=== PATIENT | male | born 1950 | race Caucasian/White ===

== ENCOUNTER 2016-10-16 08:44 | Inpatient (IN) | payer BC, OTHER ==
[~2016-10-16] VITALS: Ht 172.7 cm; Wt 90.0 kg
[~2016-10-16 08:44] MED LIST: ALG PO; ALLO300T2 PO; AMLO-110 PO; AMLO2.5T PO; ASPI81TA28 PO; ATOR-24 PO; B-COTAB83 PO; COLCPOW6 PO; CRD200 PO; FERR1TAB13 PO; INSDGIPEN INJ; LISI20TA3 PO; LSX20 PO; LTRCR15 EXT; METO25TA56 PO; MGNO400 PO; ZRX5 PO; [UNRECOGNIZED DRUG - CODE]
[2016-10-16 12:00] VITALS: BP 172/77; PULSE 59; TEMP 36.4; O2SAT 98; BMI 30.6
[2016-10-16] MEDS ORDERED: B-COTAB97 PO (12:44)
[2016-10-16] MEDS ORDERED: MAGNTAB4 PO (12:47)
[2016-10-16 13:31] LABS: HEMATOCRIT 29.4 % (42-52); MEAN CELL VOLUME 96.1 fL (80-100); MEAN CORPUSCULAR HEMOGLOBIN 32.4 pg (25-34); MEAN CORPUSCULAR HGB CONC 33.7 g/dl (32-36); MEAN PLATELET VOLUME 11.2 fL (7.4-10.4); PLATELET COUNT 188 K/uL (130-400); RED BLOOD COUNT 3.06 M/uL (4.7-6.1); WHITE BLOOD COUNT 10.74 K/uL (4.8-10.8)
[2016-10-16] MEDS ORDERED: CLOP1TAB5 PO (13:57)
[2016-10-16] MEDS ORDERED: INSDGI SC (13:57)
[2016-10-16] MEDS ORDERED: BMX1 PO (13:57)
[2016-10-16] MEDS ORDERED: VTMD1000 PO (13:57)
--- NOTE | 2016-10-16 13:58 | DIAGNOSTIC IMAGING REPORT ---
RENAL ULTRASOUND HISTORY: Renal insufficiency worsening renal fx COMPARISON: None. FINDINGS: Right kidney: Maximum dimension 11.3 cm. No evidence for hydronephrosis. Slight increase in renal cortical echogenicity. 2. Small right renal cyst measuring 1.5 cm. Left kidney: Maximum dimension 13.0 cm. No evidence for hydronephrosis. Mild increase in cortical echogenicity. Trace amount of abdominal and pelvic ascites. Bladder is midline with no ultrasonic abnormality IMPRESSION: 1. Trace abdominal and pelvic ascites. 2. Mild increase in renal cortical echogenicity consistent with a component of nonobstructive renal insufficiency. 3.Small right renal cyst. 4. No evidence for hydronephrosis. Electronically signed by: Yovany Garcia M.D. 10/16/2016 1:56 PM Dictated Date/Time: 10/16/2016 1:54 PM
[2016-10-16] MEDS ORDERED: PNEUMOCOCCAL POLYSACCHARIDES 25 MCG/0.5 ML VIAL/SYR IM. ONE (14:00)
[2016-10-16] MEDS ORDERED: PNEUMOCOCCAL ADMINISTRATION CHARGE ONE (14:00)
[2016-10-16 14:28] LABS: BUN/CREATININE RATIO 10.4 (10-20); CALCIUM 8.1 mg/dl (8.5-10.1); CREATININE 6.8 mg/dl (0.60-1.40); POTASSIUM 5.3 mmol/L (3.5-5.1)
--- NOTE | 2016-10-16 14:29 | History and Physical ---
History & Physical Date & Time of Service: Oct 16, 2016 at 14:00 Chief Complaint: Renal Insufficiency Primary Care Physician: Richard Dsouza M.D. History of Present Illness Source: patient, clinic records, hospital records Patient is a 66 y/o male who is a direct admission at the request of Dr. Aggarwal for evaluation of worsening renal function. Patient follows closely with Dr. Aggarwal as an outpatient and was noted to have worsening renal function on his outpatient labs. Patient was instructed to hold Bumex 10 days ago, which he has been doing. He reports compliance with his other medications. However, due to worsening renal function, patient was instructed to come to the hospital for further evaluation. Patient is otherwise feeling well and is without any complaints. Past Medical/Surgical History Medical Problems: (1) Diabetes Status: Chronic (2) HTN (hypertension) Status: Chronic (3) Renal insufficiency Status: Chronic Surgical Problems: (1) History of open heart surgery Status: Resolved Family History Diabetes mellitus Hypertension Social History Smoking Status: Never Smoker Marital Status: Occupational Status: retired Allergies Coded Allergies: BEE STING (Unverified Allergy, Unknown, UNKNOWN, 09/19/15) Heparin (Unverified Allergy, Unknown, UNKNOWN, 09/19/15) FOUND WHEN HE WAS HAVING OPEN HEART SURGERY.INDICATED BY THE PATIENT Penicillins (Unverified Allergy, Unknown, UNKNOWN, 09/20/15) CEFEPIME IN ED 09/2015 Sulfa Antibiotics (Verified Allergy, Unknown, "SULFA DRUGS" ALLERGY, ) TAKES LASIX O/P Home Medications Scheduled Allopurinol (Zyloprim), 300 MG PO DAILY Amlodipine (Norvasc), 10 MG PO QAM Aspirin (Aspirin Ec), 81 MG PO HS Atorvastatin (Lipitor), 80 MG PO HS B-Complex W/ C & Folic Acid (Rody-Susana), 1 TAB PO DAILY Bumetanide (Bumetanide), 3 MG PO DAILY Cholecalciferol (Vitamin D3), 1 TAB PO DAILY Clopidogrel Bisulfate (Plavix), 1 TAB PO DAILY Epinephrine (Epipen 2-Sascha), UD Ferrous Sulfate (Kp Ferrous Sulfate), 1 TAB PO QPM Insulin Glargine (Lantus), 7 SC QPM Magnesium Chloride (Slow-Mag Tab), 2 TAB PO BID Metoprolol Tartrate (Lopressor) (Lopressor), 12.5 MG PO BID Review of Systems Constitutional- denies fevers, chills, headaches; +couple pound weight gain Eyes- denies vision changes ENT- denies sore throat or congestion Pulmonary- denies SOB; +residual cough (reports bronchitis in August) Cardiac- denies chest pain or palpitations GI- denies abdominal pain, nausea, vomiting, diarrhea, constipation - denies dysuria, hematuria; +decreased frequency since holding diuretic Musculoskeletal- denies joint pain or swelling Dermatologic- denies rash or bruising Neuro- denies weakness, numbness or tingling Psych- denies depression or anxiety . Physical Exam Vital Signs Date Time Temp Pulse Resp B/P Pulse Ox O2 Delivery O2 Flow Rate FiO2 10/16/16 12:00 36.4 59 18 172/77 98 Room Air General- awake; alert; NAD Eyes- EOMI; no scleral icterus Neck- no stridor; trachea midline Lungs- CTA bilaterally; no wheezes/crackles Heart- RRR; no m/r/g Abdomen- soft; NTND; nBS Back- no gross abnormalities Extremities- trace LE edema; no deformity Neuro- no focal deficits Skin- no appreciable rash, bruise, or skin breakdown . Diagnostics Laboratory Results Results Past 24 Hours Test 10/16/16 13:20 Range/Units White Blood Count 10.74 4.8-10.8 K/uL Red Blood Count 3.06 4.7-6.1 M/uL Hemoglobin 9.9 14.0-18.0 g/dL Hematocrit 29.4 42-52 % Mean Corpuscular Volume 96.1 80-100 fL Mean Corpuscular Hemoglobin 32.4 25-34 pg Mean Corpuscular Hemoglobin Concent 33.7 32-36 g/dl RDW Standard Deviation 59.4 36.4-46.3 fL RDW Coefficient of Variation 16.8 11.5-14.5 % Platelet Count 188 130-400 K/uL Mean Platelet Volume 11.2 7.4-10.4 fL EKG TTE Normal LV chamber size with mild concentric LVH. * Hyperdynamic LV systolic function, EF >70%. * No segmental left ventricular wall motion abnormalities are noted. * There is a bioprosthetic aortic valve. * The gradient is normal for this prosthetic aortic valve. * Doppler evidence of regurgitation is probably normal for this prosthetic aortic valve. * Mild to moderate tricuspid regurgitation. * Moderate left pleural effusion. Impression Assessment and Plan Patient is a 66 y/o male who is a direct admission for worsening renal function. Acute renal insufficiency - unclear etiology - Bumex has been held as an outpatient - Renal consult - renal ultrasound ordered - urinalysis pending - h/o CKD stage 4 Type 2 DM - continue Lantus 7units qpm - SSI CAD s/p CABG and AVR - TTE with pEF, no wall motion abnormalities, normal bioprosthetic valve gradients, moderate left pleural effusion - continue aspirin, clopidogrel, atorvastatin and metoprolol HTN - continue amlodipine and metoprolol Gout - not active - continue allopurinol DVT prophylaxis with SCD's Level of Care Telemetry Advanced Directives Existing Living Will: No Existing Power of Ad Terminal Makeup Operator: No Resuscitation Status FULL RESUSCITATION VTE Prophylaxis VTE Risk Assessment Done? Y/N: Yes Risk Level: Moderate Given or contraindicated: SCD's
[2016-10-16] MEDS ORDERED: GLUCOSE 10 TABS/TUBE PO PRN (14:30)
[2016-10-16] MEDS ORDERED: DEXTROSE 50% 50 ML SYR IV PRN (14:30)
[2016-10-16] MEDS ORDERED: GLUCOSE 40% GEL 15 GM TUBE PO PRN (14:30)
[2016-10-16] MEDS ORDERED: GLUCAGON FOR INJ 1 MG VIAL SQ PRN (14:30)
[2016-10-16 16:04] VITALS: BP 155/61; PULSE 61; TEMP 36.3; O2SAT 98
--- NOTE | 2016-10-16 16:20 | ECHOCARDIOGRAM REPORT ---
*NOTICE TO RECEIVING CONSTITUTION PARTY AGENCY This information is strictly Confidential and protected under [place] law. [place] law prohibits you from making any further disclosure of this information unless further disclosure is expressly permitted by the written consent of the person to whom it pertains or is authorized by law. A general authorization for the release of medical or other information is not sufficient for this purpose. Hospital accepts no responsibility if the information is made available to any other person, INCLUDING THE PATIENT. Interpretation Summary * Name: RENATO URIBE Study Date: 10/16/2016 02:48 PM BP: 172/77 mmHg * Patient Location: [facility]\S\[id number]\S\2 HR: 59 * : 1950 (M/d/yyyy) Gender: Male Height: 68 in * Age: 66 yrs Ethnicity: [place] Weight: 198 lb * Ordering Physician: Abby Womack * Performed By: Angela Bhatt RDCS * * Reason For Study: CHF * BSA: 2.0 m2 * -- Conclusions -- * Normal LV chamber size with mild concentric LVH. * Hyperdynamic LV systolic function, EF >70%. * No segmental left ventricular wall motion abnormalities are noted. * There is a bioprosthetic aortic valve. * The gradient is normal for this prosthetic aortic valve. * Doppler evidence of regurgitation is probably normal for this prosthetic aortic valve. * Mild to moderate tricuspid regurgitation. * Moderate left pleural effusion. Procedure Details * A complete two-dimensional transthoracic echocardiogram was performed (2D, M-mode, Doppler and color flow Doppler). Left Ventricle * The left ventricular cavity is small. * There is mild concentric left ventricular hypertrophy. * Ejection Fraction = >70 %. * The left ventricle is hyperdynamic. * No segmental left ventricular wall motion abnormalities are noted. * The left ventricular wall motion is normal. Right Ventricle * The right ventricular cavity size is normal (basal dimension <4.2 cm in right ventricular apical 4-chamber view). * The right ventricular systolic function is normal as assessed by tricuspid annular plane systolic excursion (TAPSE) (normal >1.5 cm). Atria * The left atrial size is normal. * Right atrial size is normal. * No ASD detected; PFO is not assessed. Mitral Valve * The mitral valve is normal in structure and function. Tricuspid Valve * The tricuspid valve anatomy is normal. * There is no tricuspid stenosis. * There is mild to moderate tricuspid regurgitation. Aortic Valve * There is a bioprosthetic aortic valve. * The gradient is normal for this prosthetic aortic valve. * Doppler evidence of regurgitation is probably normal for this prosthetic aortic valve. Pulmonic Valve * The pulmonary valve is not well seen, but the Doppler examination is normal without significant regurgitation or stenosis. Great Vessels * The aortic root is normal size. Pericardium/Pleural * There is no pericardial effusion. * Moderate size left pleural effusion. MMode 2D Measurements and Calculations IVSd 1.2 cm LVIDd 3.7 cm LVIDs 2.1 cm LVPWd 1.3 cm IVS/LVPW 0.88 FS 41.3 % EDV(Teich) 56.4 ml ESV(Teich) 15.2 ml EF(Teich) 73.0 % EDV(cubed) 48.8 ml ESV(cubed) 9.9 ml EF(cubed) 79.8 % LV mass(C)d 151.4 grams LV mass(C)dI 74.4 grams/m\S\2 CO(Teich) 2.3 l/min CI(Teich) 1.2 l/min/m\S\2 SV(Teich) 41.2 ml SI(Teich) 20.3 ml/m\S\2 CO(cubed) 2.2 l/min CI(cubed) 1.1 l/min/m\S\2 SV(cubed) 38.9 ml SI(cubed) 19.1 ml/m\S\2 LA dimension 3.6 cm LVAd ap4 26.1 cm\S\2 LVLd ap4 7.5 cm EDV(MOD-sp4) 73.0 ml LVAs ap4 11.5 cm\S\2 LVLs ap4 6.0 cm ESV(MOD-sp4) 18.0 ml EF(MOD-sp4) 75.3 % LVAd ap2 24.0 cm\S\2 LVLd ap2 7.4 cm EDV(MOD-sp2) 65.0 ml LVAs ap2 10.1 cm\S\2 LVLs ap2 5.9 cm ESV(MOD-sp2) 15.0 ml EF(MOD-sp2) 76.9 % CO(MOD-sp4) 3.1 l/min CI(MOD-sp4) 1.5 l/min/m\S\2 SV(MOD-sp4) 55.0 ml SI(MOD-sp4) 27.0 ml/m\S\2 CO(MOD-sp2) 2.9 l/min CI(MOD-sp2) 1.4 l/min/m\S\2 SV(MOD-sp2) 50.0 ml SI(MOD-sp2) 24.6 ml/m\S\2 Doppler Measurements and Calculations MV E max krysten 118.0 cm/sec MV dec time 0.21 sec Ao V2 max 213.4 cm/sec Ao max PG 18.2 mmHg Ao max PG (full) 12.6 mmHg Ao V2 mean 147.5 cm/sec Ao mean PG 9.8 mmHg Ao V2 VTI 45.5 cm LV V1 max PG 5.6 mmHg LV V1 max 118.5 cm/sec PA V2 max 98.6 cm/sec PA max PG 3.9 mmHg PA acc slope 260.3 cm/sec\S\2 PA acc time 0.17 sec PI max krysten 182.1 cm/sec PI max PG 13.3 mmHg PI dec slope 331.1 cm/sec\S\2 PI P1/2t 161.1 msec TR max krysten 229.2 cm/sec PA pr(Accel) 1.4 mmHg
[2016-10-16] MEDS: INSULIN ASPART 100 UNITS/ML 3 ML PEN SC SCH ×2 (17:28→20:43)
[2016-10-16 19:54] VITALS: BP 165/72; PULSE 67; TEMP 36.5; O2SAT 97
--- NOTE | 2016-10-16 20:22 | DIAGNOSTIC IMAGING REPORT ---
CHEST 2 VIEWS ROUTINE HISTORY: Evaluate pleural effusion. COMPARISON: Chest 09/29/2015. FINDINGS: No pneumothorax. Poststernotomy changes. The heart remains mildly enlarged. Small bilateral pleural effusions and bibasilar densities have slightly improved. The upper lung zones remain clear. No evidence for pulmonary edema. IMPRESSION: Improvement in the small bilateral pleural effusions and bibasilar densities. Electronically signed by: Bayron Dickinson M.D. 10/16/2016 8:21 PM Dictated Date/Time: 10/16/2016 8:20 PM
[2016-10-16] MEDS: METOPROLOL TARTRATE 25 MG TAB PO SCH (20:42)
[2016-10-16] MEDS: FERROUS SULFATE 325 MG TAB PO SCH (20:43)
[2016-10-16] MEDS: MAGNESIUM CHLORIDE 64MG DELAYED REL TAB PO SCH (20:43)
[2016-10-16] MEDS ORDERED: INSULIN GLARGINE SOLOSTAR 100 UNITS/ML 3 ML PEN SC SCH (21:00)
[2016-10-16] MEDS: ASPIRIN 81 MG ECTAB PO SCH (21:02)
[2016-10-16] MEDS: ATORVASTATIN 40 MG TAB PO SCH (21:23)
--- NOTE | 2016-10-16 21:25 | Nephrology Consultation ---
Nephrology Consultation Date of Consultation: Oct 16, 2016. Attending Physician: Dr Aleman Requesting Physician: Dr Womack Reason for Consultation: progressive CKD History of Present Illness 66 year old male w/ chronic diastolic HF, pleural effusions, advanced CKD 4/5, CABG w/ AVR 08/2015, HIT + , a fib, DM admitted directly at request of my partner Dr. Aggarwal d/t worsening renal function. His creatinine has been running in the 5s off of all diuretics (had been on bumex 1.5 mg daily since about august and previously 3 mg daily until 10/04 and despite this worsened to 6.6 most recently on 10/14; chemistries have otherwise been ok and pt not overtly uremic. since stopping diuretic, his wt which ran 189-190 x mos has increased to 195 lb as of this am and UOP has decreased from 1.7 > 950 mL daily. His CKD has progressed with his heart problems: prior to 08/2015 one month [facility] admission creatinine ran in high 1's; then he had CABG w/ AVR 08/2015 in [place] and post op course complicated by prolonged intubation, CRRT then intermittent HD; creatinine at hospital d/c was about 3. Then admitted to [facility] for 2 wks 09/2015 for mgt of cardiorenal syndrome and presenting creat 3.9; d/c creat 2.6 after aggressive diuresis. Seen by my partner last month in CKD clinic w/ HTN and recent change to bumex from lasix d/ t rash last year. Pt notes however that rash persisted after med change and that he tolerated both lasix/bumex for years w/o issue. However labs after sep 2016 ckd clinic visit visit show creatinine in 5s and as above, up from most recent 3's 06/2016. On review of chart, note that labs w/ non [facility] PCP showed creatinine in similar range Aug and Sep 2016. Past Medical/Surgical History Medical Problems: (1) Elevated troponin Status: Acute (2) Hypoxia Status: Acute (3) Pleural effusion Status: Acute (4) Pneumonia Status: Acute -DM > 20 yrs w/ retinopathy -CAD s/p CABG, AVR 08/2015 at [facility] -gout and as per HPI Family History Diabetes mellitus Hypertension Social History Smoking Status: Never Smoker Alcohol Use: none Drug Use: none Marital Status: Housing Status: lives alone Occupation Status: retired Allergies Coded Allergies: BEE STING (Unverified Allergy, Unknown, UNKNOWN, 09/19/15) Heparin (Unverified Allergy, Unknown, UNKNOWN, 09/19/15) FOUND WHEN HE WAS HAVING OPEN HEART SURGERY.INDICATED BY THE PATIENT Penicillins (Unverified Allergy, Unknown, UNKNOWN, 09/20/15) CEFEPIME IN ED 09/2015 Sulfa Antibiotics (Verified Allergy, Unknown, "SULFA DRUGS" ALLERGY, ) TAKES LASIX O/P Medications Current Inpatient Medications Medications (Trade) Dose Ordered Sig/Lizandro Route Start Time Stop Time Status Last Admin Dose Admin Allopurinol (Zyloprim Tab) 300 mg DAILY PO 10/17/16 09:00 11/16/16 08:59 Amlodipine Besylate (Norvasc Tab) 10 mg QAM PO 10/17/16 09:00 11/16/16 08:59 Aspirin (Ecotrin Tab) 81 mg HS PO 10/16/16 21:00 11/15/16 20:59 Atorvastatin Calcium (Lipitor Tab) 80 mg HS PO 10/16/16 21:00 11/15/16 20:59 Cholecalciferol (Vitamin D Tab) 1,000 inter.unit DAILY PO 10/17/16 09:00 11/16/16 08:59 Clopidogrel Bisulfate (plAVix TAB) 75 mg DAILY PO 10/17/16 09:00 11/16/16 08:59 Insulin Glargine (Lantus Solostar Pen) 7 unit QPM SC 10/16/16 21:00 11/15/16 20:59 Magnesium Chloride (Slow-Mag Tab) 128 mg BID PO 10/16/16 21:00 11/15/16 20:59 Metoprolol Tartrate (Lopressor Tab) 12.5 mg BID PO 10/16/16 21:00 11/15/16 20:59 Vitamin B Complex/ Vit C/Folic Acid (Nephrocaps) 1 cap QAM PO 10/17/16 09:00 11/16/16 08:59 Ferrous Sulfate (Feosol Tab) 325 mg PM PO 10/16/16 21:00 11/15/16 20:59 Insulin Aspart (novoLOG ASPART) SLIDING SCALE If C... ACHS SC 10/16/16 16:30 11/15/16 16:29 10/16/16 17:28 4 UNITS Glucose (Glucose 40% Gel) 15-30 GRAMS 15 GRAMS... UD PRN PO 10/16/16 14:30 11/15/16 14:29 Glucose (Glucose Chew Tab) 4-8 Tablets 4 Tabl... UD PRN PO 10/16/16 14:30 11/15/16 14:29 Dextrose (Dextrose 50% 50ML Syringe) 25-50ML OF 50% DW IV FOR... UD PRN IV 10/16/16 14:30 11/15/16 14:29 Glucagon (Glucagon Inj) 1 mg UD PRN SQ 10/16/16 14:30 11/15/16 14:29 Home Meds and Scripts Medications Dose Route/Sig Max Daily Dose Days Date Category Lantus (Insulin Glargine) 100 Unit/Ml Inj 7 SC QPM 10/16/16 Reported Vitamin D3 (Cholecalciferol) 1,000 Inter.unit Tab 1 Tab PO DAILY 10/16/16 Reported Plavix (Clopidogrel Bisulfate) 75 Mg Tab 1 Tab PO DAILY 10/16/16 Reported Bumetanide 1 Mg Tab 3 Mg PO DAILY 10/16/16 Reported Slow-Mag Tab (Magnesium Chloride) 64 Mg Tabcr 2 Tab PO BID 10/16/16 Reported Rody-Susana (B-Complex W/ C & Folic Acid) 1 Tab Tab 1 Tab PO DAILY 10/16/16 Reported Kp Ferrous Sulfate (Ferrous Sulfate) 325 Mg Tab 1 Tab PO QPM 05/28/16 Reported Lopressor (Metoprolol Tartrate) 25 Mg Tab 12.5 Mg PO BID 09/19/15 Reported Norvasc (Amlodipine Besylate) 5 Mg Tab 10 Mg PO QAM 09/19/15 Reported Lipitor (Atorvastatin Calcium) 40 Mg Tab 80 Mg PO HS 09/19/15 Reported Aspirin Ec (Aspirin) 81 Mg Tab 81 Mg PO HS 11/17/14 Reported Epipen 2-Sascha (Epinephrine) 0.3 Mg Inj UD 11/17/14 Reported Zyloprim (Allopurinol) 300 Mg Tab 300 Mg PO DAILY 11/17/14 Reported Review of Systems Constitutional: + fatigue, + problem reported (wt gain), No fever, No weakness Eyes: No worsening of vision ENT: No hearing loss Respiratory: No cough, No shortness of breath Cardiac: + edema, No PND, No chest pain, No orthopnea, No palpitations Abdomen: + problem reported (distension/abd wall edema; denies loss of appetite or metallic taste to foods), No diarrhea, No nausea, No pain, No vomiting Musculoskeletal: No joint pain, No muscle pain Male : No dysuria, No nocturia more than once/night, No urinary frequency Neuro: No memory loss, No weakness Psych: No anxiety, No depression symptoms Heme: No abnormal bleeding/bruising Endo: No fatigue Skin: No itch, No new/changing skin lesions, No rash Physical Exam Date Time Temp Pulse Resp B/P Pulse Ox O2 Delivery O2 Flow Rate FiO2 10/16/16 16:04 36.3 61 18 155/61 98 Room Air 10/16/16 12:00 36.4 59 18 172/77 98 Room Air General Appearance: WD/WN, no apparent distress, + pertinent finding (up in chair on RA w/ protuberant abdomen) Eyes: EOMI ENT: hearing grossly normal Neck: supple Respiratory/Chest: lungs clear, + decreased breath sounds (BL bases) Cardiovascular: + irregularly irregular, + pertinent finding (2+ pitting edema to umbilicus) Abdomen: normal bowel sounds, non tender, soft, + pertinent finding (ant abd wall edema) Extremities: + swelling Neurologic/Psych: no motor/sensory deficits, alert, normal mood/affect, oriented x 3 Skin: no jaundice, warm/dry, no rash Diagnostics Last 24 Hours Test 10/16/16 13:20 10/16/16 16:07 White Blood Count 10.74 K/uL Red Blood Count 3.06 M/uL Hemoglobin 9.9 g/dL Hematocrit 29.4 % Mean Corpuscular Volume 96.1 fL Mean Corpuscular Hemoglobin 32.4 pg Mean Corpuscular Hemoglobin Concent 33.7 g/dl RDW Standard Deviation 59.4 fL RDW Coefficient of Variation 16.8 % Platelet Count 188 K/uL Mean Platelet Volume 11.2 fL Sodium Level 141 mmol/L Potassium Level 5.3 mmol/L Chloride Level 112 mmol/L Carbon Dioxide Level 18 mmol/L Anion Gap 11.0 mmol/L Blood Urea Nitrogen 71 mg/dl Creatinine 6.80 mg/dl Est Creatinine Clear Calc Drug Dose 11.4 ml/min Estimated GFR () 8.9 Estimated GFR (Non- 7.6 BUN/Creatinine Ratio 10.4 Random Glucose 81 mg/dl Calcium Level 8.1 mg/dl Magnesium Level 2.0 mg/dl Hepatitis C Antibody Screen NEG Bedside Glucose 93 mg/dl Diagnostic Radiology: Renal u/s today > no stone or hydronephrosis; small R renal cyst TTE today * Normal LV chamber size with mild concentric LVH. * Hyperdynamic LV systolic function, EF >70%. * No segmental left ventricular wall motion abnormalities are noted. * There is a bioprosthetic aortic valve. * The gradient is normal for this prosthetic aortic valve. * Doppler evidence of regurgitation is probably normal for this prosthetic aortic valve. * Mild to moderate tricuspid regurgitation. * Moderate left pleural effusion. Assessment & Plan 66 y/o M w/ progressive ckd now w/ creatinine in 6's and mild hyperkalemia in the setting of chronic DHF, a fib, DM. Fortunately no uremic sx. Diuretics on hold prior to admission and really on low dose diuretic prior to this; renal u/ s reassuring. Clearly volume overloaded and hypertensive on exam. See HPI re lasix/bumex rash/intolerance > in short pt not concerned. some anemia but this may well be dilutional. HIT noted. -lasix IV 60 mg now x 1 -then lasix 60 mg iv at 0700, 1300, 1900 tomorrow -renal diet -CXR 2 view shows small BL pl effusions and no plm edema -daily standing wt -<2 gm daily na diet -daily bmp -uacm pending, prot/creat ordered - TSH in am >> his HR is quite slow for low BB dose -no acute indication for dialysis but cannot rule out need this admission -f/u pending ua and check prot/creat ratio Appreciate consult; will follow with you.
[2016-10-16] MEDS ORDERED: FUROSEMIDE INJ 60 MG in SYRINGE 0 ML IV ONE (21:30)
[2016-10-16 21:54] LABS: THYROID STIMULATING HORMONE 4.16 uIu/ml (0.300-4.500)
[2016-10-16 22:35] LABS: URINE APPEARANCE CLEAR (CLEAR); URINE BILIRUBIN NEG (NEG); URINE COLOR YELLOW; URINE EPITHELIAL CELL AUTO >30 /lpf (0-5); URINE NITRITE NEG (NEG); URINE PH 5.5 (4.5-7.5); UROBILINOGEN NEG (NEG)
[2016-10-16 22:46] LABS: MANUAL MICROSCOPIC REQUIRED? NO; REVIEW REQ? YES
[2016-10-16 22:57] LABS: URINE PATH CASTS 5-10 GRANULAR CASTS /lpf (0)
[2016-10-16 23:22] LABS: URINE PROTIEN/CREAT RATIO 13.8 (0-0.2); URINE TOTAL PROTEIN 718.9 mg/dl (0-11.9)
[2016-10-17] VITALS (8 sets, daily range): BP systolic 111–171; BP diastolic 53–80; PULSE 56–77; TEMP 36.5–36.9; O2SAT 92–98; Ht 172.7 cm; Wt 90.0 kg
[2016-10-17] MEDS: INSULIN ASPART 100 UNITS/ML 3 ML PEN SC SCH ×5 (06:30→20:24)
[2016-10-17 06:58] LABS: HEMATOCRIT 26.5 % (42-52); MEAN CORPUSCULAR HGB CONC 34.3 g/dl (32-36); MEAN PLATELET VOLUME 11.6 fL (7.4-10.4); PLATELET COUNT 168 K/uL (130-400); RED BLOOD COUNT 2.76 M/uL (4.7-6.1); WHITE BLOOD COUNT 9.01 K/uL (4.8-10.8)
[2016-10-17] MEDS: FUROSEMIDE INJ 60 MG in SYRINGE 0 ML IV SCH ×3 (07:38→18:46)
[2016-10-17] MEDS: METOPROLOL TARTRATE 25 MG TAB PO SCH ×2 (07:39→20:20)
[2016-10-17] MEDS: MAGNESIUM CHLORIDE 64MG DELAYED REL TAB PO SCH ×2 (07:40→20:20)
[2016-10-17 07:41] LABS: BUN/CREATININE RATIO 10.3 (10-20); CALCIUM 7.9 mg/dl (8.5-10.1); CREATININE 6.9 mg/dl (0.60-1.40); MAGNESIUM 1.8 mg/dl (1.8-2.4); POTASSIUM 4.7 mmol/L (3.5-5.1)
[2016-10-17] MEDS ORDERED: CHOLECALCIFEROL 1000 INTER.UNIT TAB PO SCH (09:00)
[2016-10-17] MEDS ORDERED: NEPHROCAPS PO SCH (09:00)
[2016-10-17] MEDS ORDERED: ALLOPURINOL 300 MG TAB PO SCH (09:00)
[2016-10-17] MEDS ORDERED: AMLODIPINE BESYLATE 5 MG TAB PO SCH (09:00)
[2016-10-17] MEDS ORDERED: CLOPIDOGREL BISULFATE 75 MG TAB PO SCH (09:00)
[2016-10-17] MEDS ORDERED: PHARMACY GLYCEMIC MGMT CONSULT SCH (11:30)
--- NOTE | 2016-10-17 12:59 | Nephrology Progress Note ---
Nephrology Progress Note Date of Service: Oct 17, 2016. Subjective no interval events; notes edema better b/c knees looser; still no fatigue, N, dyspnea. reluctant to meet vascular but accepts need for tomorrow Objective Date Time Temp Pulse Resp B/P Pulse Ox O2 Delivery O2 Flow Rate FiO2 10/17/16 11:28 36.8 56 18 135/80 96 10/17/16 08:00 Room Air 10/17/16 07:43 36.8 63 18 167/74 98 Room Air 10/17/16 03:53 98 Room Air 10/17/16 03:52 36.8 58 20 148/53 96 10/17/16 00:19 36.9 66 18 144/76 98 Room Air 10/17/16 00:00 98 Room Air 10/16/16 20:00 Room Air 10/16/16 19:54 36.5 67 20 165/72 97 Room Air 10/16/16 16:04 36.3 61 18 155/61 98 Room Air 10/16/16 16:00 Room Air Physical Exam: General Appearance: WD/WN, no apparent distress, + pertinent finding (up in chair on RA w/ protuberant abdomen) Eyes: EOMI ENT: hearing grossly normal Neck: supple Respiratory/Chest: lungs clear, + decreased breath sounds (BL bases) Cardiovascular: + irregularly irregular, + pertinent finding (still w/ 2+ pitting edema to umbilicus) Abdomen: normal bowel sounds, non tender, soft, + pertinent finding (ant abd wall edema) Extremities: + swelling Neurologic/Psych: no motor/sensory deficits, alert, normal mood/affect, oriented x 3 Skin: no jaundice, warm/dry, no rash Current Inpatient Medications Medications (Trade) Dose Ordered Sig/Lizandro Route Start Time Stop Time Status Last Admin Dose Admin Allopurinol (Zyloprim Tab) 300 mg DAILY PO 10/17/16 09:00 11/16/16 08:59 10/17/16 07:40 300 MG Amlodipine Besylate (Norvasc Tab) 10 mg QAM PO 10/17/16 09:00 11/16/16 08:59 10/17/16 07:39 10 MG Aspirin (Ecotrin Tab) 81 mg HS PO 10/16/16 21:00 11/15/16 20:59 10/16/16 21:02 81 MG Atorvastatin Calcium (Lipitor Tab) 80 mg HS PO 10/16/16 21:00 11/15/16 20:59 10/16/16 21:23 80 MG Cholecalciferol (Vitamin D Tab) 1,000 inter.unit DAILY PO 10/17/16 09:00 11/16/16 08:59 10/17/16 07:40 1,000 INTER.UNIT Clopidogrel Bisulfate (plAVix TAB) 75 mg DAILY PO 10/17/16 09:00 11/16/16 08:59 10/17/16 07:40 75 MG Magnesium Chloride (Slow-Mag Tab) 128 mg BID PO 10/16/16 21:00 11/15/16 20:59 10/17/16 07:40 128 MG Metoprolol Tartrate (Lopressor Tab) 12.5 mg BID PO 10/16/16 21:00 11/15/16 20:59 10/17/16 07:39 12.5 MG Vitamin B Complex/ Vit C/Folic Acid (Nephrocaps) 1 cap QAM PO 10/17/16 09:00 11/16/16 08:59 10/17/16 07:39 1 CAP Ferrous Sulfate (Feosol Tab) 325 mg PM PO 10/16/16 21:00 11/15/16 20:59 10/16/16 20:43 325 MG Insulin Aspart (novoLOG ASPART) SLIDING SCALE If C... ACHS SC 10/16/16 16:30 10/16/16 17:28 4 UNITS Glucose (Glucose 40% Gel) 15-30 GRAMS 15 GRAMS... UD PRN PO 10/16/16 14:30 11/15/16 14:29 Glucose (Glucose Chew Tab) 4-8 Tablets 4 Tabl... UD PRN PO 10/16/16 14:30 11/15/16 14:29 Dextrose (Dextrose 50% 50ML Syringe) 25-50ML OF 50% DW IV FOR... UD PRN IV 10/16/16 14:30 11/15/16 14:29 Glucagon 1 mg 1 mg UD PRN SQ 10/16/16 14:30 11/15/16 14:29 Furosemide/Syringe (Lasix Inj/ Syringe) 6 ml @ 3 mls/min DAILY@0700,1300,1900 IV 10/17/16 07:00 11/16/16 06:59 10/17/16 12:25 3 MLS/MIN Miscellaneous Information (Consult Glycemic Management Pharmacy) 1 ea UD N/A 10/17/16 11:30 11/16/16 11:29 Last 24 Hours Test 10/16/16 13:20 10/16/16 16:07 10/16/16 20:05 10/16/16 22:21 White Blood Count 10.74 K/uL Red Blood Count 3.06 M/uL Hemoglobin 9.9 g/dL Hematocrit 29.4 % Mean Corpuscular Volume 96.1 fL Mean Corpuscular Hemoglobin 32.4 pg Mean Corpuscular Hemoglobin Concent 33.7 g/dl RDW Standard Deviation 59.4 fL RDW Coefficient of Variation 16.8 % Platelet Count 188 K/uL Mean Platelet Volume 11.2 fL Sodium Level 141 mmol/L Potassium Level 5.3 mmol/L Chloride Level 112 mmol/L Carbon Dioxide Level 18 mmol/L Anion Gap 11.0 mmol/L Blood Urea Nitrogen 71 mg/dl Creatinine 6.80 mg/dl Est Creatinine Clear Calc Drug Dose 11.4 ml/min Estimated GFR () 8.9 Estimated GFR (Non- 7.6 BUN/Creatinine Ratio 10.4 Random Glucose 81 mg/dl Calcium Level 8.1 mg/dl Magnesium Level 2.0 mg/dl Thyroid Stimulating Hormone (TSH) 4.160 uIu/ml Hepatitis C Antibody Screen NEG Bedside Glucose 93 mg/dl 124 mg/dl Urine Color YELLOW Urine Appearance CLEAR Urine pH 5.5 Urine Specific [place] 1.010 Urine Protein 3+ Urine Glucose (UA) 1+ Urine Ketones NEG Urine Occult Blood 2+ Urine Nitrite NEG Urine Bilirubin NEG Urine Urobilinogen NEG Urine Leukocyte Esterase NEG Urine WBC (Auto) 5-10 /hpf Urine RBC (Auto) 10-30 /hpf Urine Hyaline Casts (Auto) 10-30 /lpf Urine Epithelial Cells (Auto) >30 /lpf Urine Bacteria (Auto) NEG Urine Renal Epithelial Cells 0-5 /lpf Urine Pathogenic Casts 5-10 GRANULAR CASTS /lpf Urine Random Creatinine 52.0 mg/dl Urine Random Total Protein 718.9 mg/dl Urine Protein/Creatinine Ratio 13.8 Test 10/17/16 06:00 10/17/16 07:30 White Blood Count 9.01 K/uL Red Blood Count 2.76 M/uL Hemoglobin 9.1 g/dL Hematocrit 26.5 % Mean Corpuscular Volume 96.0 fL Mean Corpuscular Hemoglobin 33.0 pg Mean Corpuscular Hemoglobin Concent 34.3 g/dl RDW Standard Deviation 57.9 fL RDW Coefficient of Variation 16.5 % Platelet Count 168 K/uL Mean Platelet Volume 11.6 fL Sodium Level 140 mmol/L Potassium Level 4.7 mmol/L Chloride Level 111 mmol/L Carbon Dioxide Level 16 mmol/L Anion Gap 13.0 mmol/L Blood Urea Nitrogen 71 mg/dl Creatinine 6.90 mg/dl Est Creatinine Clear Calc Drug Dose 11.2 ml/min Estimated GFR () 8.7 Estimated GFR (Non- 7.5 BUN/Creatinine Ratio 10.3 Random Glucose 57 mg/dl Calcium Level 7.9 mg/dl Magnesium Level 1.8 mg/dl Bedside Glucose 61 mg/dl Assessment & Plan 66 y/o M w/ progressive ckd admitted 10/16 w/ creatinine in 6's and mild hyperkalemia in the setting of chronic DHF, a fib, DM. Fortunately no uremic sx. Diuretics on hold prior to admission and really on low dose diuretic prior to this; renal u/s reassuring. Clearly volume overloaded and hypertensive on exam. See HPI re lasix/bumex rash/intolerance > in short pt not concerned. some anemia but this may well be dilutional. HIT noted. he has 14 gm proteinuria on spot ratio; hx of previous nephrotic range proteinuria as outpt; urine also w/ blood, granular casts; no UTI; 20+ yr hx of DM, HTN -cont lasix 60 mg iv at 0700, 1300, 1900 tomorrow -renal diet -daily standing wt order reinforced -<2 gm daily na diet -daily bmp - TSH wnl -no acute indication for dialysis but cannot rule out need this admission > I plan to consult vascular in AM for possible TDC on 10/21 -spent over 20 min discussing ESRD planning/education w/ pt and got daughter's phone #; will attempt to contact her this evening Appreciate consult; will follow with you.
--- NOTE | 2016-10-17 13:21 | Pharmacy Progress Note ---
Glycemic Control Intl Consult Date of Service Oct 17, 2016. Scope Glycemic Pharmacist consulted by Dr Aleman on 10/17/16 for glycemic control and to write orders per [facility] inpatient glycemic control protocol Objective Weight (Kilograms): 90.000 Accuchecks BSG (last 24hrs): Test 10/16/16 13:20 10/16/16 16:07 10/16/16 20:05 10/17/16 06:00 Random Glucose 81 mg/dl (70-99) 57 mg/dl (70-99) Bedside Glucose 93 mg/dl (70-99) 124 mg/dl (70-99) Test 10/17/16 07:30 Bedside Glucose 61 mg/dl (70-99) Laboratory Data (last 24hrs) Test 10/16/16 13:20 10/17/16 06:00 Anion Gap 11.0 mmol/L 13.0 mmol/L BUN/Creatinine Ratio 10.4 10.3 Blood Urea Nitrogen 71 mg/dl 71 mg/dl Creatinine 6.80 mg/dl 6.90 mg/dl Potassium Level 5.3 mmol/L 4.7 mmol/L Sodium Level 141 mmol/L 140 mmol/L White Blood Count 10.74 K/uL 9.01 K/uL Recent Pertinent Medications Outpatient Anti-diabetic Regimen: * Lantus 7 units qpm * A1c = probably not accurate due to renal impairment/anemia The patient is currently receiving: * Basal insulin: Lantus on hold * Correctional Insulin: Novolog Correction per scale ACHS Goal Range: Low 140 mg/dL - High 180 mg/dL Correction Factor: 50 mg/dL/unit * Prandial insulin: Per carb ratio of 1 unit per 30 grams CHO consumed * Oral Agents: none Risk Factors for Insulin Resistance: * Steroids: no * Infection: no * Pressors: no * IVF: no * Recent Surgery: no * Diet: type 2 diabetic AHA renal low sodium * Mechanical Ventilation: no Assessment & Plan ASSESSMENT: * ADA & AACE recommend a goal blood sugar range 140-180 mg/dl for the majority of critically ill & non-critically ill patients. However, more stringent targets may be selected in individual cases. * 66 yo type 2 diabetic now admitted for worsening renal function. Blood sugars have been running low, possibly due to accumulation of Lantus with increasing renal impairment. Will hold Lantus until BSG is above 180, continue conservative correction, and hold carb coverage for now. Will reassess in am. PLAN FOR INPATIENT GLYCEMIC CONTROL: * Basal insulin with LANTUS per protocol qhs if BSG is less than 180, hold dose if BSG is 181 or more, give 7 units * Correctional Insulin with NOVOLOG per scale ACHS or Q6hrs while NPO * Goal Range: Low 140 mg/dL - High 180 mg/dL * Correction Factor: 50 mg/dL/unit * No Nutritional / Prandial insulin at this time * Please note that the plan above was derived based on current level of insulin resistance and hospital stress. These recommendations are appropriate for inpatient admission only. Plan of care upon discharge will need to be reassessed to avoid potential outpatient hypo/hyperglycemia. Thank you.
--- NOTE | 2016-10-17 17:24 | Progress Note ---
Medicine Progress Note Date & Time of Visit: Oct 17, 2016 at 16:58. Subjective seen resting in bedside chair comfortable denies chest pain, dyspnea, dizziness, nausea, abdominal pain, weakness no other symptoms Objective Last 8 Hrs Date Time Temp Pulse Resp B/P Pulse Ox O2 Delivery O2 Flow Rate FiO2 10/17/16 16:13 36.5 57 18 171/79 96 Room Air 10/17/16 16:00 Room Air 10/17/16 12:00 Room Air 10/17/16 11:28 36.8 56 18 135/80 96 Physical Exam: General- oriented x 3, not in distress, speaks in sentences with no effort Eyes-EOMI, anicteric Neck- supple, no JVD Lungs- clear to auscultation bilaterally, no rales/wheeze Heart- normal rate, regular rhythm; no murmurs Abdomen- normal bowel sounds, soft, nontender Extremities- no pretibial edema, no calf tenderness; peripheral pulses intact Neuro- alert, oriented x 3; no gross deficits Skin- warm & dry Laboratory Results: Last 24 Hours Test 10/16/16 20:05 10/16/16 22:21 10/17/16 06:00 10/17/16 07:30 Bedside Glucose 124 mg/dl 61 mg/dl Urine Color YELLOW Urine Appearance CLEAR Urine pH 5.5 Urine Specific [place] 1.010 Urine Protein 3+ Urine Glucose (UA) 1+ Urine Ketones NEG Urine Occult Blood 2+ Urine Nitrite NEG Urine Bilirubin NEG Urine Urobilinogen NEG Urine Leukocyte Esterase NEG Urine WBC (Auto) 5-10 /hpf Urine RBC (Auto) 10-30 /hpf Urine Hyaline Casts (Auto) 10-30 /lpf Urine Epithelial Cells (Auto) >30 /lpf Urine Bacteria (Auto) NEG Urine Renal Epithelial Cells 0-5 /lpf Urine Pathogenic Casts 5-10 GRANULAR CASTS /lpf Urine Random Creatinine 52.0 mg/dl Urine Random Total Protein 718.9 mg/dl Urine Protein/Creatinine Ratio 13.8 White Blood Count 9.01 K/uL Red Blood Count 2.76 M/uL Hemoglobin 9.1 g/dL Hematocrit 26.5 % Mean Corpuscular Volume 96.0 fL Mean Corpuscular Hemoglobin 33.0 pg Mean Corpuscular Hemoglobin Concent 34.3 g/dl RDW Standard Deviation 57.9 fL RDW Coefficient of Variation 16.5 % Platelet Count 168 K/uL Mean Platelet Volume 11.6 fL Sodium Level 140 mmol/L Potassium Level 4.7 mmol/L Chloride Level 111 mmol/L Carbon Dioxide Level 16 mmol/L Anion Gap 13.0 mmol/L Blood Urea Nitrogen 71 mg/dl Creatinine 6.90 mg/dl Est Creatinine Clear Calc Drug Dose 11.2 ml/min Estimated GFR () 8.7 Estimated GFR (Non- 7.5 BUN/Creatinine Ratio 10.3 Random Glucose 57 mg/dl Calcium Level 7.9 mg/dl Magnesium Level 1.8 mg/dl Test 10/17/16 07:56 10/17/16 11:40 10/17/16 16:44 Bedside Glucose 71 mg/dl 105 mg/dl 119 mg/dl Assessment & Plan Patient is a 66 y/o male who is a direct admission for worsening renal function. ACUTE RENAL FAILURE ON CKD 4 - baseline crea ~2.6, presented with crea 6.8 - unclear etiology - Bumex has been held as an outpatient with persistent elevation of crea - Renal consulted - renal ultrasound: 1. Trace abdominal and pelvic ascites. 2. Mild increase in renal cortical echogenicity consistent with a component of nonobstructive renal insufficiency. 3.Small right renal cyst. 4. No evidence for hydronephrosis. - urinalysis: 3+ protein, rbc 10-30, 5-10 granular case - given Lasix 40mg IV TID urine output 1.1 liter so far crea still at 6.9 - discussed case with Nephrology will likely need renal biopsy to r/o Nephrotic Syndrome, recommend transfer to [facility] Armando spoke with [facility] hospitalist who kindly accepted the patient Type 2 DM - hypoglycemic at ~60s this AM - hold usual PM Lantus - insulin sliding scale for now CAD s/p CABG and AVR- Bioprosthetic - Echo: -- Conclusions -- * Normal LV chamber size with mild concentric LVH. * Hyperdynamic LV systolic function, EF >70%. * No segmental left ventricular wall motion abnormalities are noted. * There is a bioprosthetic aortic valve. * The gradient is normal for this prosthetic aortic valve. * Doppler evidence of regurgitation is probably normal for this prosthetic aortic valve. * Mild to moderate tricuspid regurgitation. * Moderate left pleural effusion. - continue aspirin, clopidogrel, atorvastatin and metoprolol HTN - mildly elevated asymptomatic monitor - continue amlodipine and metoprolol GOUT - not active - continue allopurinol DVT prophylaxis with SCD's Disposition d/c to [facility] today Current Inpatient Medications: Current Inpatient Medications Medications (Trade) Dose Ordered Sig/Lizandro Route Start Time Stop Time Status Last Admin Dose Admin Allopurinol (Zyloprim Tab) 300 mg DAILY PO 10/17/16 09:00 11/16/16 08:59 10/17/16 07:40 300 MG Amlodipine Besylate (Norvasc Tab) 10 mg QAM PO 10/17/16 09:00 11/16/16 08:59 10/17/16 07:39 10 MG Aspirin (Ecotrin Tab) 81 mg HS PO 10/16/16 21:00 11/15/16 20:59 10/16/16 21:02 81 MG Atorvastatin Calcium (Lipitor Tab) 80 mg HS PO 10/16/16 21:00 11/15/16 20:59 10/16/16 21:23 80 MG Cholecalciferol (Vitamin D Tab) 1,000 inter.unit DAILY PO 10/17/16 09:00 11/16/16 08:59 10/17/16 07:40 1,000 INTER.UNIT Clopidogrel Bisulfate (plAVix TAB) 75 mg DAILY PO 10/17/16 09:00 11/16/16 08:59 10/17/16 07:40 75 MG Magnesium Chloride (Slow-Mag Tab) 128 mg BID PO 10/16/16 21:00 11/15/16 20:59 10/17/16 07:40 128 MG Metoprolol Tartrate (Lopressor Tab) 12.5 mg BID PO 10/16/16 21:00 11/15/16 20:59 10/17/16 07:39 12.5 MG Vitamin B Complex/ Vit C/Folic Acid (Nephrocaps) 1 cap QAM PO 10/17/16 09:00 11/16/16 08:59 10/17/16 07:39 1 CAP Ferrous Sulfate (Feosol Tab) 325 mg PM PO 10/16/16 21:00 11/15/16 20:59 10/16/16 20:43 325 MG Insulin Aspart (novoLOG ASPART) SLIDING SCALE If C... ACHS SC 10/16/16 16:30 10/16/16 17:28 4 UNITS Glucose (Glucose 40% Gel) 15-30 GRAMS 15 GRAMS... UD PRN PO 10/16/16 14:30 11/15/16 14:29 Glucose (Glucose Chew Tab) 4-8 Tablets 4 Tabl... UD PRN PO 10/16/16 14:30 11/15/16 14:29 Dextrose (Dextrose 50% 50ML Syringe) 25-50ML OF 50% DW IV FOR... UD PRN IV 10/16/16 14:30 11/15/16 14:29 Glucagon 1 mg 1 mg UD PRN SQ 10/16/16 14:30 11/15/16 14:29 Furosemide/Syringe (Lasix Inj/ Syringe) 6 ml @ 3 mls/min DAILY@0700,1300,1900 IV 10/17/16 07:00 11/16/16 06:59 10/17/16 12:25 3 MLS/MIN Miscellaneous Information (Consult Glycemic Management Pharmacy) 1 ea UD N/A 10/17/16 11:30 11/16/16 11:29 Insulin Glargine (Lantus Solostar Pen) see protocol QPM SC 10/17/16 21:00 11/16/16 20:59
--- NOTE | 2016-10-17 17:29 | Discharge Instructions ---
Discharge Instructions Date of Service Oct 17, 2016. Admission Reason for Admission: Renal Insufficiency Discharge Discharge Diagnosis / Problem: ACUTE RENAL FAILURE ON CHRONIC KIDNEY DISEASE Discharge Goals Goal(s): Diagnostic testing, Therapeutic intervention Activity Recommendations Activity Level: Ambulates in room . Additional Information Patient informed of condition: Yes Advance Directives: No (UNKNOWN) DNR: No (PATIENT IS FULL CODE) Level of Care: Other ([facility]) Communicable Disease: No Prognosis: Other (GUARDED) Instructions / Follow-Up Instructions / Follow-Up PLEASE REFER TO ACCOMPANYING DISCHARGE SUMMARY. ALSO REFER TO SEPARATE MEDICAL RECONCILIATION SHEET FOR UPDATED MEDICATION LIST. Current Hospital Diet Patient's current hospital diet: Renal Diet, AHA Diet (Heart Healthy), Diabetes Type 2 Diet, Low Sodium Diet (2gm Na) Discharge Diet Recommended Diet: AHA Diet (Heart Healthy), Renal Diet Fluid Restriction: 1500 ml (6 cups) Procedures Procedures Performed: PLEASE REFER TO ACCOMPANYING DISCHARGE SUMMARY. Pending Studies Studies pending at discharge: yes List of pending studies: PLEASE REFER TO ACCOMPANYING DISCHARGE SUMMARY. Physician Orders On Transfer Special Precautions: PLEASE REFER TO ACCOMPANYING DISCHARGE SUMMARY. Medical Emergencies . Who to Call and When: Medical Emergencies: If at any time you feel your situation is an emergency, please call 911 immediately. . Non-Emergent Contact Non-Emergency issues call your: Primary Care Provider . Past History Medical & Surgical History: (1) Diabetes (2) HTN (hypertension) (3) Renal insufficiency . "Provider Documentation" section prepared by Fabricio Aleman. Core Measure Problem Core Measures: None
--- NOTE | 2016-10-17 17:37 | Discharge Summary ---
Discharge Summary Date of Service Oct 17, 2016. Discharge Summary Admission Date: Oct 16, 2016 at 11:00 Discharge Date: Oct 17, 2016 Discharge Disposition: Acute care facility Principal Diagnosis: ACUTE RENAL FAILURE ON CKD 4 Secondary Diagnoses/Problems: PLEASE REFER TO HOSPITAL COURSE BELOW. Procedures: RENAL ULTRASOUND HISTORY: Renal insufficiency worsening renal fx COMPARISON: None. FINDINGS: Right kidney: Maximum dimension 11.3 cm. No evidence for hydronephrosis. Slight increase in renal cortical echogenicity. 2. Small right renal cyst measuring 1.5 cm. Left kidney: Maximum dimension 13.0 cm. No evidence for hydronephrosis. Mild increase in cortical echogenicity. Trace amount of abdominal and pelvic ascites. Bladder is midline with no ultrasonic abnormality IMPRESSION: 1. Trace abdominal and pelvic ascites. 2. Mild increase in renal cortical echogenicity consistent with a component of nonobstructive renal insufficiency. 3.Small right renal cyst. 4. No evidence for hydronephrosis. Interpretation Summary * Name: RENATO URIBE Study Date: 10/16/2016 02:48 PM BP: 172/77 mmHg * Patient Location: [facility]\\81\\S\\2 HR: 59 * : 1950 (M/d/yyyy) Gender: Male Height: 68 in * Age: 66 yrs Ethnicity: [place] Weight: 198 lb * Ordering Physician: Abby Womack * Performed By: Angela Bhatt RDCS * * Reason For Study: CHF * BSA: 2.0 m2 * -- Conclusions -- * Normal LV chamber size with mild concentric LVH. * Hyperdynamic LV systolic function, EF >70%. * No segmental left ventricular wall motion abnormalities are noted. * There is a bioprosthetic aortic valve. * The gradient is normal for this prosthetic aortic valve. * Doppler evidence of regurgitation is probably normal for this prosthetic aortic valve. * Mild to moderate tricuspid regurgitation. * Moderate left pleural effusion. Procedure Details * A complete two-dimensional transthoracic echocardiogram was performed (2D, M- mode, Doppler and color flow Doppler). Left Ventricle * The left ventricular cavity is small. * There is mild concentric left ventricular hypertrophy. * Ejection Fraction = >70 %. * The left ventricle is hyperdynamic. * No segmental left ventricular wall motion abnormalities are noted. * The left ventricular wall motion is normal. Right Ventricle * The right ventricular cavity size is normal (basal dimension <4.2 cm in right ventricular apical 4-chamber view). * The right ventricular systolic function is normal as assessed by tricuspid annular plane systolic excursion (TAPSE) (normal >1.5 cm). Atria * The left atrial size is normal. * Right atrial size is normal. * No ASD detected; PFO is not assessed. Mitral Valve * The mitral valve is normal in structure and function. Tricuspid Valve * The tricuspid valve anatomy is normal. * There is no tricuspid stenosis. * There is mild to moderate tricuspid regurgitation. Aortic Valve * There is a bioprosthetic aortic valve. * The gradient is normal for this prosthetic aortic valve. * Doppler evidence of regurgitation is probably normal for this prosthetic aortic valve. Pulmonic Valve * The pulmonary valve is not well seen, but the Doppler examination is normal without significant regurgitation or stenosis. Great Vessels * The aortic root is normal size. Pericardium/Pleural * There is no pericardial effusion. * Moderate size left pleural effusion. MMode 2D Measurements and Calculations IVSd 1.2 cm LVIDd 3.7 cm LVIDs 2.1 cm LVPWd 1.3 cm IVS/LVPW 0.88 FS 41.3 % EDV(Teich) 56.4 ml ESV(Teich) 15.2 ml EF(Teich) 73.0 % EDV(cubed) 48.8 ml ESV(cubed) 9.9 ml EF(cubed) 79.8 % LV mass(C)d 151.4 grams LV mass(C)dI 74.4 grams/m\\S\\2 CO(Teich) 2.3 l/min CI(Teich) 1.2 l/min/m\\S\\2 SV(Teich) 41.2 ml SI(Teich) 20.3 ml/m\\S\\2 CO(cubed) 2.2 l/min CI(cubed) 1.1 l/min/m\\S\\2 SV(cubed) 38.9 ml SI(cubed) 19.1 ml/m\\S\\2 LA dimension 3.6 cm LVAd ap4 26.1 cm\\S\\2 LVLd ap4 7.5 cm EDV(MOD-sp4) 73.0 ml LVAs ap4 11.5 cm\\S\\2 LVLs ap4 6.0 cm ESV(MOD-sp4) 18.0 ml EF(MOD-sp4) 75.3 % LVAd ap2 24.0 cm\\S\\2 LVLd ap2 7.4 cm EDV(MOD-sp2) 65.0 ml LVAs ap2 10.1 cm\\S\\2 LVLs ap2 5.9 cm ESV(MOD-sp2) 15.0 ml EF(MOD-sp2) 76.9 % CO(MOD-sp4) 3.1 l/min CI(MOD-sp4) 1.5 l/min/m\\S\\2 SV(MOD-sp4) 55.0 ml SI(MOD-sp4) 27.0 ml/m\\S\\2 CO(MOD-sp2) 2.9 l/min CI(MOD-sp2) 1.4 l/min/m\\S\\2 SV(MOD-sp2) 50.0 ml SI(MOD-sp2) 24.6 ml/m\\S\\2 Doppler Measurements and Calculations MV E max krysten 118.0 cm/sec MV dec time 0.21 sec Ao V2 max 213.4 cm/sec Ao max PG 18.2 mmHg Ao max PG (full) 12.6 mmHg Ao V2 mean 147.5 cm/sec Ao mean PG 9.8 mmHg Ao V2 VTI 45.5 cm LV V1 max PG 5.6 mmHg LV V1 max 118.5 cm/sec PA V2 max 98.6 cm/sec PA max PG 3.9 mmHg PA acc slope 260.3 cm/sec\\S\\2 PA acc time 0.17 sec PI max krysten 182.1 cm/sec PI max PG 13.3 mmHg PI dec slope 331.1 cm/sec\\S\\2 PI P1/2t 161.1 msec TR max krysten 229.2 cm/sec PA pr(Accel) 1.4 mmHg Consultations: INDEX CLERK DR. NATHAN Pending Studies/Follow-Up: ALSO REFER TO SEPARATE MEDICAL RECONCILIATION SHEET FOR UPDATED MEDICATION LIST. Medication Reconciliation Continued Medications: Allopurinol (Zyloprim) 300 Mg Tab 300 MG PO DAILY, TAB Amlodipine (Norvasc) 5 Mg Tab 10 MG PO QAM, TAB Aspirin (Aspirin Ec) 81 Mg Tab 81 MG PO HS Atorvastatin (Lipitor) 40 Mg Tab 80 MG PO HS, TAB B-Complex W/ C & Folic Acid (Rody-Susana) 1 Tab Tab 1 TAB PO DAILY Cholecalciferol (Vitamin D3) 1,000 Inter.unit Tab 1 TAB PO DAILY Clopidogrel Bisulfate (Plavix) 75 Mg Tab 1 TAB PO DAILY, TAB Epinephrine (Epipen 2-Sascha) 0.3 Mg Inj UD Ferrous Sulfate (Kp Ferrous Sulfate) 325 Mg Tab 1 TAB PO QPM, TAB Magnesium Chloride (Slow-Mag Tab) 64 Mg Tabcr 2 TAB PO BID, TAB Metoprolol Tartrate (Lopressor) (Lopressor) 25 Mg Tab 12.5 MG PO BID, TAB Discontinued Medications: Bumetanide (Bumetanide) 1 Mg Tab 3 MG PO DAILY Insulin Glargine (Lantus) 100 Unit/Ml Inj 7 SC QPM, VIAL Admission Information HPI (per Admitting provider): Patient is a 66 y/o male who is a direct admission at the request of Dr. Aggarwal for evaluation of worsening renal function. Patient follows closely with Dr. Aggarwal as an outpatient and was noted to have worsening renal function on his outpatient labs. Patient was instructed to hold Bumex 10 days ago, which he has been doing. He reports compliance with his other medications. However, due to worsening renal function, patient was instructed to come to the hospital for further evaluation. Patient is otherwise feeling well and is without any complaints. Physical Exam (per Admitting): General- awake; alert; NAD Eyes- EOMI; no scleral icterus Neck- no stridor; trachea midline Lungs- CTA bilaterally; no wheezes/crackles Heart- RRR; no m/r/g Abdomen- soft; NTND; nBS Back- no gross abnormalities Extremities- trace LE edema; no deformity Neuro- no focal deficits Skin- no appreciable rash, bruise, or skin breakdown . Hospital Course Patient is a 66 y/o male who is a direct admission for worsening renal function. ACUTE RENAL FAILURE ON CKD 4 - baseline crea ~2.6, presented with crea 6.8 - unclear etiology - Bumex has been held as an outpatient with persistent elevation of crea - Renal consulted - renal ultrasound: 1. Trace abdominal and pelvic ascites. 2. Mild increase in renal cortical echogenicity consistent with a component of nonobstructive renal insufficiency. 3.Small right renal cyst. 4. No evidence for hydronephrosis. - urinalysis: 3+ protein, rbc 10-30, 5-10 granular case - given Lasix 40mg IV TID urine output 1.1 liter so far crea still at 6.9 - discussed case with Nephrology will likely need renal biopsy to r/o Nephrotic Syndrome, recommend transfer to [facility] spoke with [facility] hospitalist who kindly accepted the patient Mild Hyperkalemia - K 5.3 on admission, now 4.7 - monitor Type 2 DM - hypoglycemic at ~60s this AM- asymptomatic - hold usual PM Lantus - insulin sliding scale for now CAD s/p CABG and AVR- Bioprosthetic - Echo: -- Conclusions -- * Normal LV chamber size with mild concentric LVH. * Hyperdynamic LV systolic function, EF >70%. * No segmental left ventricular wall motion abnormalities are noted. * There is a bioprosthetic aortic valve. * The gradient is normal for this prosthetic aortic valve. * Doppler evidence of regurgitation is probably normal for this prosthetic aortic valve. * Mild to moderate tricuspid regurgitation. * Moderate left pleural effusion. - continue aspirin, clopidogrel, atorvastatin and metoprolol HTN - mildly elevated asymptomatic monitor - continue amlodipine and metoprolol GOUT - not active - continue allopurinol DVT prophylaxis with SCD's Disposition d/c to [facility] today Total time spent on discharge = 60 minutes This includes examination of the patient, discharge planning, medication reconciliation, and communication with other providers. Discharge Instructions Discharge Instructions Date of Service Oct 17, 2016. Admission Reason for Admission: Renal Insufficiency Discharge Discharge Diagnosis / Problem: ACUTE RENAL FAILURE ON CHRONIC KIDNEY DISEASE Discharge Goals Goal(s): Diagnostic testing, Therapeutic intervention Activity Recommendations Activity Level: Ambulates in room . Additional Information Patient informed of condition: Yes Advance Directives: No (UNKNOWN) DNR: No (PATIENT IS FULL CODE) Level of Care: Other ([facility]) Communicable Disease: No Prognosis: Other (GUARDED) Instructions / Follow-Up Instructions / Follow-Up PLEASE REFER TO ACCOMPANYING DISCHARGE SUMMARY. ALSO REFER TO SEPARATE MEDICAL RECONCILIATION SHEET FOR UPDATED MEDICATION LIST. Current Hospital Diet Patient's current hospital diet: Renal Diet, AHA Diet (Heart Healthy), Diabetes Type 2 Diet, Low Sodium Diet (2gm Na) Discharge Diet Recommended Diet: AHA Diet (Heart Healthy), Renal Diet Fluid Restriction: 1500 ml (6 cups) Procedures Procedures Performed: PLEASE REFER TO ACCOMPANYING DISCHARGE SUMMARY. Pending Studies Studies pending at discharge: yes List of pending studies: PLEASE REFER TO ACCOMPANYING DISCHARGE SUMMARY. Physician Orders On Transfer Special Precautions: PLEASE REFER TO ACCOMPANYING DISCHARGE SUMMARY. Medical Emergencies . Who to Call and When: Medical Emergencies: If at any time you feel your situation is an emergency, please call 911 immediately. . Non-Emergent Contact Non-Emergency issues call your: Primary Care Provider . Past History Medical & Surgical History: (1) Diabetes (2) HTN (hypertension) (3) Renal insufficiency . "Provider Documentation" section prepared by Fabricio Aleman. Core Measure Problem Core Measures: None
[2016-10-17] MEDS: ASPIRIN 81 MG ECTAB PO SCH (20:19)
[2016-10-17] MEDS: ATORVASTATIN 40 MG TAB PO SCH (20:20)
[2016-10-17] MEDS: FERROUS SULFATE 325 MG TAB PO SCH (20:21)
[2016-10-17] MEDS ORDERED: INSULIN GLARGINE SOLOSTAR 100 UNITS/ML 3 ML PEN SC SCH (21:00)
== END 2016-10-17 20:43 | disposition short-term general hospital (02) | DRG 683 ==
LOC: C.MED 11:00
PROVIDERS: ADMIT Internal Medicine; ATTEND Internal Medicine
DX: N17.9 Acute kidney failure, unspecified (principal); I50.32 Chronic diastolic (congestive) heart failure; R18.8 Other ascites; I13.2 Hypertensive heart and chronic kidney disease with heart failure and with stage 5 chronic kidney disease, or end stage renal disease; N18.5 Chronic kidney disease, stage 5; I25.10 Atherosclerotic heart disease of native coronary artery without angina pectoris; I48.91 Unspecified atrial fibrillation; E87.5 Hyperkalemia; E11.319 Type 2 diabetes mellitus with unspecified diabetic retinopathy without macular edema; D64.9 Anemia, unspecified; M10.9 Gout, unspecified; N28.1 Cyst of kidney, acquired; E11.22 Type 2 diabetes mellitus with diabetic chronic kidney disease; Z95.2 Presence of prosthetic heart valve; Z95.1 Presence of aortocoronary bypass graft; Z79.4 Long term (current) use of insulin; Z79.02 Long term (current) use of antithrombotics/antiplatelets; Z79.82 Long term (current) use of aspirin; Z79.899 Other long term (current) drug therapy

== ENCOUNTER → 2017-03-11 | Outpatient (CLI) | payer BC ==
[~2017-03-11] MED LIST changes: -ALG PO; +ALLO100T PO; -AMLO2.5T PO; -B-COTAB83 PO; +B-COTAB97 PO; +BMX1 PO; +CLOP1TAB5 PO; +COLC0.6T54 PO; -COLCPOW6 PO; -CRD200 PO; +INSDGI SC; -INSDGIPEN INJ; -LISI20TA3 PO; -LSX20 PO; -LTRCR15 EXT; +MAGNESIUM PO; +MAGNTAB4 PO; -MGNO400 PO; +VTMD1000 PO; -ZRX5 PO
--- NOTE | 2017-03-11 09:47 | DIAGNOSTIC IMAGING REPORT ---
CT SCAN OF THE ABDOMEN AND PELVIS WITHOUT CONTRAST CLINICAL HISTORY: Chronic renal disease. PRETRANSPLANT WORKUP COMPARISON STUDY: No previous studies for comparison. TECHNIQUE: CT scan of the abdomen and pelvis was performed from the lung bases to the proximal femurs. Images are reviewed in the axial, sagittal, and coronal planes. IV contrast was not administered for this examination. A dose lowering technique was utilized adhering to the principles of ALARA. CT DOSE: 911.96 mGycm FINDINGS: Lower chest: There are postsurgical changes of a midline sternotomy and aortic valve replacement. There are coronary artery calcifications present. There are basilar atelectatic changes. There is a trace right pleural effusion. Liver: The unenhanced liver is normal in size, contour, and attenuation. There is no intrahepatic biliary ductal dilatation. There are calcifications present within the posterior aspect of the right lobe the liver, likely dystrophic Gallbladder: Cholelithiasis Spleen: The spleen is mildly enlarged measuring 13.6 cm in length Pancreas: Unremarkable. Adrenal glands: Unremarkable. Kidneys: There are bilateral vascular calcifications. There is no hydronephrosis. There is mild bilateral perinephric fluid/edema. There is a retroaortic left renal vein. Single bilateral renal arteries are visualized with atheromatous calcification at the renal origins. Vascular anatomy evaluation is limited given the lack of intravenous contrast. Bowel: There are no transition zones indicate bowel obstruction. There is no evidence of acute diverticulitis. The appendix appears normal. Peritoneum: There is a small amount of free pelvic fluid. There are bilateral fat-containing inguinal hernias. No free air is visualized. Vasculature: There are moderately extensive atheromatous calcifications within the aorta and iliac vessels. No aneurysm is visualized. Adenopathy: There are mildly prominent aortocaval lymph nodes. Pelvic viscera: There are multiple surgical clips the pelvis, likely secondary to prior prostate surgery Skeletal structures: No destructive lesions are visualized. Arthritic changes are present within the hips. IMPRESSION: 1. No evidence of bowel obstruction. No evidence of free air 2. Cholelithiasis 3. No evidence of acute appendicitis. No evidence of acute diverticulitis 4. Retroaortic left renal vein 5. No renal, ureteral, or bladder calculi identified 6. Bilateral fat-containing inguinal hernias 7. Small amount of free fluid in the pelvis 8. Trace right pleural effusion Electronically signed by: Renato Garrison M.D. 03/11/2017 9:46 AM Dictated Date/Time: 03/11/2017 9:38 AM
--- NOTE | 2017-03-11 10:18 | DIAGNOSTIC IMAGING REPORT ---
CAROTID ARTERY ULTRASOUND CLINICAL HISTORY: CHRONIC KIDNEY DISEASE,TRANSPLANT EVAL,PT TO CTS 1 COMPARISON STUDY: None. TECHNIQUE: Real-time, grayscale, and color Doppler sonography of the carotid and vertebral arteries was performed. Images were viewed in the transverse and longitudinal planes. FINDINGS: There is extensive atherosclerotic plaque. Velocity measurements are listed below. COMMON CAROTID PEAK SYSTOLIC VELOCITY (CM/S): RIGHT 97 LEFT 104 ICA PEAK SYSTOLIC VELOCITY (CM/S): RIGHT 227 LEFT 127 The systolic ratio between the right internal to common carotid artery is elevated at 2.3. The systolic ratio between the left internal to common carotid artery is normal at 1.2. Antegrade flow is seen in the vertebral arteries. The external carotid arteries are patent. Blood pressure was not obtained in this patient. IMPRESSION: 1. Findings suggestive of 50-69% stenosis of the proximal right internal carotid artery. 2. Findings suggestive of approximately 50% stenosis of the proximal left internal carotid artery. Electronically signed by: Abdoulaye Drake M.D. 03/11/2017 10:17 AM Dictated Date/Time: 03/11/2017 10:14 AM
== END | disposition home or self-care (01) ==
LOC: C.CTS 09:15
PROVIDERS: ATTEND Family Medicine
DX: N18.4 Chronic kidney disease, stage 4 (severe) (principal); E11.22 Type 2 diabetes mellitus with diabetic chronic kidney disease; E11.59 Type 2 diabetes mellitus with other circulatory complications; Z99.2 Dependence on renal dialysis; I65.23 Occlusion and stenosis of bilateral carotid arteries

== ENCOUNTER → 2017-03-13 | Outpatient (CLI) | payer BC ==
[~2017-03-13] MED LIST changes: +REGADENOSON 0.4 MG/5 ML SYR ONE
--- NOTE | 2017-03-14 13:05 | MYOCARDIAL PERFUSION SCAN ---
ONE-DAY NUCLEAR MEDICINE TECHNETIUM-99M CARDIOLITE MYOCARDIAL PERFUSION SCAN CLINICAL HISTORY: The patient has known coronary artery disease having undergone bypass surgery previously. This stress test is being performed as a prerenal transplant evaluation. COMPARISON: None. TECHNIQUE: For the stress portion of the study, 32.2 mCi of Technetium 99 m Cardiolite IV was injected at 11:40 a.m. 03/13/2017. Thirty minutes following the injection, imaging of the heart was performed in multiple projection. For the rest portion of the study, 10.2 mCi of Technetium 99 m Cardiolite was injected IV at 9:55 a.m. One hour following the injection, imaging of the heart was performed in the same projections. For the stress portion of the study, 0.4 mg of Lexiscan was injected intravenously as per protocol. The patient did not develop chest discomfort or EKG changes. Following the study, patient was hemodynamically stable without complaints. FINDINGS: The short axis, vertical long axis, and horizontal long axis images were reviewed in detail. There is normal tracer uptake at both stress and rest, thus excluding a prior myocardial infarction and stress induced myocardial ischemia. Left ventricle demonstrates hyperdynamic systolic function without wall motion abnormality. An estimated left ventricular ejection fraction is 74%. IMPRESSION: 1. No scintigraphic evidence of a prior myocardial infarction or stress induced myocardial ischemia. 2. No Lexiscan induced chest pain. 3. No Lexiscan induced EKG changes. 4. Hyperdynamic left ventricular systolic function with an ejection fraction of 74%.
== END | disposition home or self-care (01) ==
LOC: C.NUCL 09:16
PROVIDERS: ATTEND Family Medicine
DX: N18.4 Chronic kidney disease, stage 4 (severe) (principal); Z99.2 Dependence on renal dialysis; E11.59 Type 2 diabetes mellitus with other circulatory complications; I12.9 Hypertensive chronic kidney disease with stage 1 through stage 4 chronic kidney disease, or unspecified chronic kidney disease; I25.10 Atherosclerotic heart disease of native coronary artery without angina pectoris; Z95.1 Presence of aortocoronary bypass graft

== ENCOUNTER → 2017-05-20 | Day surgery (SDC) | payer BC ==
[2017-05-16 09:54] VITALS: BMI 28.0
--- NOTE | 2017-05-16 10:33 | PAT Medication Instructions ---
Service Date May 16, 2017. Current Home Medication List Allopurinol (Zyloprim), 100 MG PO QAM Amlodipine (Norvasc), 10 MG PO QAM Aspirin (Aspirin Ec), 81 MG PO HS Atorvastatin (Lipitor), 80 MG PO HS Bumetanide (Bumetanide), 2 MG PO QAM Cholecalciferol (Vitamin D3), 1 TAB PO QAM Colchicine (Colchicine), 0.6 MG PO UD PRN for RN Epinephrine (Epipen 2-Sascha), UD Metoprolol Tartrate (Lopressor) (Lopressor), 12.5 MG PO BID [Magnesium], 64 MG PO BID Medication Instructions For Your Scheduled Surgery - Continue as directed: Epinephrine (Epipen 2-Sascha), UD - Hold the following medications the morning of surgery: [Magnesium], 64 MG PO BID Colchicine (Colchicine), 0.6 MG PO UD PRN for RN Cholecalciferol (Vitamin D3), 1 TAB PO QAM Bumetanide (Bumetanide), 2 MG PO QAM - Take the following medications the morning of surgery with a sip of water: Metoprolol Tartrate (Lopressor) (Lopressor), 12.5 MG PO BID Allopurinol (Zyloprim), 100 MG PO QAM Amlodipine (Norvasc), 10 MG PO QAM - Take the following medications as scheduled the night before surgery: [Magnesium], 64 MG PO BID Metoprolol Tartrate (Lopressor) (Lopressor), 12.5 MG PO BID Aspirin (Aspirin Ec), 81 MG PO HS Atorvastatin (Lipitor), 80 MG PO HS If you have any questions please call us at [phone] or [phone] or [phone]
[2017-05-16 11:50] LABS: BASO % 0.4 %; BASO ABS # 0.02 K/uL (0-0.2); COMPLETE YES; EOS % 4.9 %; HEMATOCRIT 33.6 % (42-52); IG% 0.2 %; LYMPH % 18.6 %; LYMPH ABS # 0.91 K/uL (1.2-3.4); MEAN CELL VOLUME 100.3 fL (80-100); MEAN CORPUSCULAR HEMOGLOBIN 32.8 pg (25-34); MEAN CORPUSCULAR HGB CONC 32.7 g/dl (32-36); MEAN PLATELET VOLUME 11.9 fL (7.4-10.4); MONO % 9.6 %; NEUT % 66.3 %; PLATELET COUNT 107 K/uL (130-400); RED BLOOD COUNT 3.35 M/uL (4.7-6.1); WHITE BLOOD COUNT 4.89 K/uL (4.8-10.8)
[2017-05-16 12:00] LABS: INR 1.1 (0.9-1.1); PARTIAL THROMBOPLASTIN RATIO 1.2
[2017-05-16 13:47] LABS: BUN/CREATININE RATIO 10.3 (10-20); CALCIUM 9.5 mg/dl (8.5-10.1); CREATININE 6.3 mg/dl (0.60-1.40); POTASSIUM 5.2 mmol/L (3.5-5.1)
[~2017-05-20] VITALS: Ht 172.7 cm; Wt 83.0 kg
[~2017-05-20] MED LIST changes: -ALLO300T2 PO; +ATROPINE SULFATE 0.1 MG/ML 5ML SYR IV PRN; -B-COTAB97 PO; +BUPIVACAINE/EPINEPHRINE 0.5% MPF 1:200,000 30 ML VIAL ONE; +CLINDAMYCIN 600 MG/54 ML D5W IV SCH; -CLOP1TAB5 PO; +EpHEDrine SULFATE 50MG/5ML SYR ONE; +EpHEDrine SULFATE INJ 50 MG/ML AMP IV PRN; +FENTANYL CITRATE INJ 50 MCG/1 ML 2 ML VIAL ONE; -FERR1TAB13 PO; +GLYCOPYRROLATE INJ 0.2 MG/ML VIAL ONE; +HEPARIN SOD (PORCINE) 1000 UNIT/ML 10 ML VIAL ONE; +HEPARIN SOD (PORCINE) 5000 UNIT/ML 1 ML VIAL ONE; -INSDGI SC; +KETAMINE HCL INJ 50 MG/ML 10 ML VIAL ONE; +LIDOCAINE HCL 1% 20 ML VIAL ONE; +LIDOCAINE HCL 2% 2 ML VIAL (20MG/ML) ONE; -MAGNTAB4 PO; +MIDAZOLAM HCL 1 MG/ML 2ML VIAL ONE; +OXYC-57 PO; +OXYCODONE/ACETAMINOPHEN 5-325 TAB PO PRN; +PROPOFOL IV EMULSION 10 MG/ML 20 ML VIAL IV ONE; -REGADENOSON 0.4 MG/5 ML SYR ONE; +SODIUM BICARBONATE 8.4% INJ 50 MEQ/50 ML VIAL ONE; +SODIUM CHLORIDE 0.9% 1000ML 1,000 ML IV SCH; +SODIUM CHLORIDE 0.9% INJ 10 ML VIAL ONE
--- NOTE | 2017-05-20 06:17 | History and Physical ---
History & Physical Date of Service May 20, 2017. History & Physical CC: End stage renal disease HPI: Mr. Crisostomo is a 66-year-old gentleman who is on hemodialysis. He has a left upper arm fistula in place that was placed at [facility] in the past and this is working well. He is here for evaluation for insertion of a peritoneal dialysis catheter. He has had abdominal surgery in the past with a lower midline incision below the umbilicus for a radical prostatectomy years ago. He has had no other abdominal surgery. ALLERGIES: BEE STINGS, HEPARIN, PENICILLIN AND SULFA. PAST MEDICAL HISTORY: Positive for heart disease, hypertension, diabetes, cancer circulation problems, and kidney disease. PREVIOUS SURGERIES: Include prostate surgery with radical prostatectomy. He had a coronary bypass graft in 2016, and he has had access surgery of his left arm. FAMILY HISTORY: Positive also for hypertension, diabetes and cancer and circulatory problems. SOCIAL HISTORY: He does not smoke. He drinks 1-2 drinks a day. REVIEW OF SYSTEMS: Ten systems were reviewed. Other than the HPI, his only complaints are his gout. PHYSICAL EXAMINATION: The patient is awake, oriented x3. Blood pressure 160/ 54. Neck: Within normal limits. No carotid bruits. Lungs are clear. Heart regular rate and rhythm. Abdominal exam is benign. There is a lower midline incision, which is well healed. There are no herniations appreciated. No masses are felt. Vascular exam, his radials, carotids, supratemporal arteries + 2 bilaterally. Femorals and pedals are +2 bilaterally. IMPRESSION: End-stage renal disease. PLAN AND RECOMMENDATIONS: At this point, we will go ahead with the insertion of a peritoneal dialysis catheter. He does understand that due to the radical prostatectomy, we may have difficulty with flows. We will have to do it supraumbilically due to the incision, which starts at the umbilicus distally. He understands the risks, options, benefits and agrees to go ahead with this procedure.
[2017-05-20 09:35] VITALS: BP 131/67; PULSE 52; TEMP 36.5; O2SAT 98; Ht 172.7 cm; Wt 83.0 kg
--- NOTE | 2017-05-20 10:01 | History & Physical Bridge Note ---
H&P Re-Evaluation Bridge Note: I have examined the patient, reviewed the History & Physical and in the interval since the performance of the History & Physical I have noted the following changes of clinical significance: No changes noted
[2017-05-20 10:33] LABS: CALCIUM 9.2 mg/dl (8.5-10.1); CREATININE 5.84 mg/dl (0.60-1.40); POTASSIUM 4.3 mmol/L (3.5-5.1)
--- NOTE | 2017-05-20 11:32 | [facility] Post Operative Brief Note ---
Immediate Operative Summary Operative Date May 20, 2017. Pre-Operative Diagnosis End-stage renal disease Post-Operative Diagnosis End-stage renal disease Procedure(s) Performed Insertion of Continuous Ambulatory Peritoneal Dialysis Catheter Surgeon Dr. Barahona Broadcast Meteorologist Surgeon(s) Marlena Bass PA-C Estimated Blood Loss none per surgeon Findings good inflow and outflow Specimens none per surgeon Anesthesia MAC Complication(s) None Disposition Recovery Room / PACU
--- NOTE | 2017-05-20 11:36 | Discharge Instructions ---
Discharge Instructions Date of Service May 20, 2017. Visit Reason for Visit: End Stage Renal Disease Discharge Discharge Diagnosis / Problem: End stage renal disease Discharge Goals Goal(s): Therapeutic intervention Activity Recommendations Activity Limitations: per Instructions/Follow-up section Anesthesia . Post Anesthesia Instructions: If you have had General Anesthesia or IV Sedation: * Do not drive today. * Resume driving when surgeon permits. * Do not make important decisions or sign legal documents today. * Call surgeon for: 1. Temperature elevations greater than 101 degrees F. 2. Uncontrollable pain. 3. Excessive bleeding. 4. Persistent nausea and vomiting. 5. Medication intolerance (nausea, vomiting or rash). * For nausea and vomiting use only clear liquids such as: tea, soda, bouillon until nausea subsides, then gradually increase diet as tolerated. * If you have any concerns or questions, call your surgeon's office. If physician is unavailable and it is an emergency, call 911 or go to the nearest emergency room. . Instructions / Follow-Up Instructions / Follow-Up Call [phone] to schedule a follow up appointment if one not already scheduled. Make an appointment with the peritoneal dialysis nurses for a dressing change and wound check ACTIVITY RECOMMENDATIONS: See Above SPECIAL CARE INSTRUCTIONS: Call your doctor if: * Temperature above 101 degrees * Pain not relieved by pain medicine ordered * There is increased drainage or redness from any incision * You have any unanswered questions or concerns. Diet Recommendations Recommended Home Diet: resume previous diet Procedures Procedures Performed: Insertion of Continuous Ambulatory Peritoneal Dialysis Catheter Pending Studies Studies pending at discharge: no Medical Emergencies . Who to Call and When: Medical Emergencies: If at any time you feel your situation is an emergency, please call 911 immediately. . Non-Emergent Contact Non-Emergency issues call your: Surgeon . . "Provider Documentation" section prepared by Chance Barahona. .
--- NOTE | 2017-05-20 11:57 | OPERATIVE REPORT ---
DATE OF OPERATION: 05/20/2017 PREOPERATIVE DIAGNOSIS: End-stage renal disease. POSTOPERATIVE DIAGNOSIS: Same. PROCEDURE: Insertion of chronic ambulatory peritoneal dialysis catheter. SURGEON: Dr. Chance Barahona. ACCOUNTING CONSULTANT: Marlena Bass PA-C. ANESTHETIC: MAC. PROCEDURE INDICATIONS: The patient is a 67-year-old gentleman, on hemodialysis, wants to do a home dialysis. Peritoneal dialysis catheter was recommended. He understood the risks, options and benefits and agreed to go ahead with this procedure. DESCRIPTION OF PROCEDURE: The patient was taken to the operating room and placed in the supine position. After the abdomen was prepped and draped in a sterile manner, local anesthetic was administered. We did a small midline incision above the umbilicus due to his lower infraumbilical incision from his radical prostatectomy. This was carried down to where the midline fascia was identified. A small kinsey was made in the midline fascia. The peritoneum was brought up to the wound with clamps. Small kinsey was made in the peritoneum. A small amount of ascitic fluid exited. The catheter was then inserted through this hole in the peritoneum down into the pelvis. The peritoneum was then sutured around the catheter cuff with 3-0 Vicryl suture. The fascia was then approximated over the cuff with a 3-0 Prolene. Once this was done, a trocar was used and the catheter was brought out through a stab wound in the left flank. The adapter was then placed on the catheter. A liter of fluid was allowed to run in. It ran in very quickly. It was then drained. Again, this drained extremely well. All the fluid was removed. The wound was then showed no leaks around the catheter. The wound was then closed in the usual fashion using running 3-0 Vicryl suture for the subcutaneous layer and a 4-0 Vicryl subcuticular suture for the skin edges. Dermabond was used for dressing. A sterile dressing was placed over the catheter and the wound. This was done with an occlusive type dressing. The patient left the OR in good condition and tolerated the procedure well. Marlena Bass Pac assisted due to lack of resident availability and was necessary for prepping, draping, retraction, wound closure defects, subQ and skin closure and was necessary for the case. I attest to the content of the Intraoperative Record and any orders documented therein. Any exceptions are noted below. MTDD
[2017-05-20 12:00] VITALS: BP 113/54; PULSE 62; TEMP 36.4; O2SAT 99
--- NOTE | 2017-05-20 12:06 | Anesthesiology Progress Note ---
Anesthesia Post Op Note Date & Time May 20, 2017 at 12:06 Vital Signs Pain Intensity: 0 Vital Signs Past 12 Hours Date Time Temp Pulse Resp B/P (MAP) Pulse Ox O2 Delivery O2 Flow Rate FiO2 05/20/17 11:50 36.5 67 20 107/66 97 Room Air 05/20/17 11:40 70 21 108/51 96 Room Air 05/20/17 11:32 36.6 73 17 113/53 95 Room Air 05/20/17 09:35 36.5 52 18 131/67 (88) 98 Room Air Notes Mental Status: alert / awake / arousable, participated in evaluation Pt Amnestic to Procedure: Yes Nausea / Vomiting: adequately controlled Pain: adequately controlled Airway Patency, RR, SpO2: stable & adequate BP & HR: stable & adequate Hydration State: stable & adequate Anesthetic Complications: no major complications apparent
[2017-05-20 12:30] VITALS: BP 148/63; PULSE 61; TEMP 36.8; O2SAT 97
[2017-05-20 12:55] VITALS: BP 135/59; PULSE 65; TEMP 36.8; O2SAT 99
== END | disposition home or self-care (01) ==
LOC: C.ACU 09:19
PROVIDERS: ATTEND Surgery Vascular Surgery
DX: N18.6 End stage renal disease (principal); E11.9 Type 2 diabetes mellitus without complications; I12.0 Hypertensive chronic kidney disease with stage 5 chronic kidney disease or end stage renal disease; I25.10 Atherosclerotic heart disease of native coronary artery without angina pectoris; I73.9 Peripheral vascular disease, unspecified; M10.9 Gout, unspecified; M19.90 Unspecified osteoarthritis, unspecified site; Z99.2 Dependence on renal dialysis; Z79.82 Long term (current) use of aspirin; Z79.899 Other long term (current) drug therapy; Z68.28 Body mass index [BMI] 28.0-28.9, adult; Z90.89 Acquired absence of other organs; Z95.1 Presence of aortocoronary bypass graft; Z88.0 Allergy status to penicillin; Z88.2 Allergy status to sulfonamides; Z98.41 Cataract extraction status, right eye; Z98.42 Cataract extraction status, left eye